=== PATIENT | male | born 1955 | race Caucasian/White ===

== ENCOUNTER → 2017-11-11 08:55 | Outpatient (CLI) | payer MEDICAID, SELFPAY ==
[2017-11-11 11:54] LABS: ALT 25 U/L (12-78); AST 15 U/L (15-37); Albumin 3.7 g/dL (3.4-5.0); Alkaline Phosphatase 48 U/L (46-116); Anion Gap 9.7 mmol/L (3-11); BUN 20 mg/dL (7-18); CO2 26.3 mmol/L (21.0-32.0); CREATININE 1.03 mg/dL (0.70-1.30); Calcium 8.7 mg/dL (8.5-10.1); Chloride 104 mmol/L (98-107); Cholesterol 193 mg/dL (50-200); Glucose 105 mg/dL (70-100); HDL Cholesterol 85 mg/dL (40-60); Sodium 140 mmol/L (136-145); Triglyceride 50 mg/dL (30-150)
[2017-11-11 12:24] LABS: LDL CHOLESTEROL 88 mg/dL (<100)
[2017-11-11 12:38] LABS: Bilirubin, Total 0.6 mg/dL (0.2-1.0); Total Protein 6.3 g/dL (6.4-8.2)
== END ==
PROVIDERS: PCP Emergency Medicine; Visit Provider Family Medicine
DX: I10 Essential (primary) hypertension (principal); G47.62 Sleep related leg cramps
CPT/HCPCS: 36415; 80053; 80061; 83721; 83735

== ENCOUNTER 2020-07-31 08:05 | Outpatient (CLI) | payer SELFPAY ==
[2020-07-31 13:15] LABS: BUN 14 mg/dL (7-18); CREATININE 0.9 mg/dL (0.70-1.30); Chloride 108 mmol/L (98-107); Glucose 110 mg/dL (74-106); Potassium 4.5 mmol/L (3.5-5.1); Sodium 144 mmol/L (136-145)
[2020-07-31 17:50] LABS: PSA, Screening 0.6 ng/mL (0.0-4.5)
== END 2020-07-31 08:06 | disposition home or self-care (01) ==
LOC: LOS 08:07
PROVIDERS: PCP Emergency Medicine; Visit Provider Emergency Medicine
DX: I10 Essential (primary) hypertension (principal); Z12.5 Encounter for screening for malignant neoplasm of prostate
CPT/HCPCS: 36415; 80048; 84153

== ENCOUNTER 2024-09-28 03:13 | Outpatient (CLI) | payer MEDICARE, SELFPAY ==
[2024-09-28 12:47] LABS: Anion Gap 8.6 mmol/L (3-11); BUN 15 mg/dL (7-18); CO2 28.4 mmol/L (21.0-32.0); Calcium 9.1 mg/dL (8.5-10.1); Calculated LDL 96 mg/dL (<100); Chloride 105 mmol/L (98-107); Cholesterol 189 mg/dL (<200); Estimated GFR 82.49 (mL/min/1.73m2); Glucose 109 mg/dL (74-106); HDL Cholesterol 83 mg/dL (>or=40); Potassium 4.5 mmol/L (3.5-5.1); Sodium 142 mmol/L (136-145); Triglyceride 50 mg/dL (<150)
[2024-09-28 12:53] LABS: Hemoglobin A1C 5.6 % (<5.7)
[2024-09-28 19:12] LABS: PSA, Screening 0.6 ng/mL (<=4.5)
== END 2024-09-28 03:14 | disposition home or self-care (01) ==
LOC: LOS 03:13
PROVIDERS: PCP Nurse Practitioner Family; Visit Provider Nurse Practitioner Family
DX: Z12.5 Encounter for screening for malignant neoplasm of prostate (principal); Z13.6 Encounter for screening for cardiovascular disorders; Z13.1 Encounter for screening for diabetes mellitus
CPT/HCPCS: 36415; 80048; 80061; 84153; 83036